=== PATIENT | male | born 1990 | race African-American/Black ===

== ENCOUNTER 2017-10-14 16:01 | Emergency (ER) | payer OTHER ==
[~2017-10-14] VITALS: Ht 172.7 cm; Wt 83.9 kg
--- NOTE | 2017-10-14 16:02 | NUR ---
PT BIBRA FROM THE STREETS TO ER BED 14. C/O CHEST DISCOFORT S/P DONATING BLOOD TODAY. PT APPEARS ANXIOUS. ADMIT TO DRUG USE. PLACED ON MONITOR. VSS. AWAITING MD GOVEA.
--- NOTE | 2017-10-14 16:11 | NUR ---
DR JAVED AT BEDSIDE FOR EVAL.
--- NOTE | 2017-10-14 17:05 | NUR ---
Patient discharged to home in stable condition. Written and verbal after care instructions given. Patient verbalizes understanding of instruction.
[2017-10-14 17:06] VITALS: BP 142/80
== END 2017-10-14 17:06 | disposition home or self-care (01) ==
LOC: ER 16:02
DX: R07.89 Other chest pain (principal); F15.10 Other stimulant abuse, uncomplicated; F60.0 Paranoid personality disorder; F41.9 Anxiety disorder, unspecified
CPT/HCPCS: 71045; 93005; 99284; A4606; Z7610